=== PATIENT | male | born 1990 | race Caucasian/White ===

== ENCOUNTER 2017-07-07 11:38 | Emergency (ER) | payer OTHER ==
[~2017-07-07] VITALS: Ht 180.3 cm; Wt 59.1 kg
[2017-07-07 12:26] VITALS: BP 117/75; PULSE 97; RESP 20; TEMP 98.7; O2SAT 100
[2017-07-07 15:10] LABS: AUTOMATED NEUTROPHIL # 7.2 TH/MM3 (1.8-7.7); BASOPHIL % 0.4 % (0.0-2.0); EOSINOPHIL # 0.1 TH/MM3 (0-0.4); EOSINOPHIL % 0.7 % (0.0-4.0); HEMATOCRIT 45.1 % (39.0-51.0); HEMOGLOBIN 15.7 GM/DL (13.0-17.0); LYMPHOCYTE # 1.6 TH/MM3 (1.0-4.8); MEAN CELL VOLUME 85.7 FL (80.0-100.0); MEAN CORPUSCULAR HEMOGLOBIN 29.9 PG (27.0-34.0); MEAN CORPUSCULAR HGB CONC 34.8 % (32.0-36.0); MONO % 5.9 % (0.0-8.0); MONOCYTE # 0.6 TH/MM3 (0-0.9); PLATELET COUNT 272 TH/MM3 (150-450); RED BLOOD COUNT 5.26 MIL/MM3 (4.50-5.90); RED CELL DISTRIBUTION WIDTH 12.4 % (11.6-17.2); WHITE BLOOD COUNT 9.4 TH/MM3 (4.0-11.0)
[2017-07-07 15:19] LABS: ALBUMIN 3.4 GM/DL (3.4-5.0); ALT (GPT) 68 U/L (12-78); AST (GOT) 40 U/L (15-37); BICARBONATE 18.6 MEQ/L (21.0-32.0); BLOOD UREA NITROGEN 6 MG/DL (7-18); CALCIUM 9.7 MG/DL (8.5-10.1); CHLORIDE 103 MEQ/L (98-107); CREATININE 0.86 MG/DL (0.60-1.30); GLOMERULAR FILTRATION RATE 106 ML/MIN (>89); GLUCOSE,RANDOM 102 MG/DL (74-106); SODIUM (NA) 133 MEQ/L (136-145)
[2017-07-07 15:21] LABS: ALKALINE PHOSPHATASE 103 U/L (45-117); TOTAL BILIRUBIN ADULT 1.5 MG/DL (0.2-1.0); TOTAL PROTEIN 8.2 GM/DL (6.4-8.2)
[2017-07-07 15:27] LABS: AMORPHOUS SEDIMENT, URINE OCC; BILIRUBIN, URINE NEG (NEG); BLOOD, URINE NEG (NEG); GLUCOSE,URINE NEG (NEG); KETONE, URINE NEG (NEG); MUCUS URINE FEW /lpf (OCC); NITRITE,URINE NEG (NEG); URINE COLOR YELLOW (YELLW/STRAW); URINE LEUKOCYTE ESTERASE NEG (NEG)
[2017-07-07] MEDS ORDERED: POTASSIUM CHLORIDE 25 MEQ EFFERVESCENT TAB PO ONE (15:30)
[2017-07-07] MEDS ORDERED: MORPHINE SULFATE 4 MG/ML INJ IV PUSH ONE (15:30)
[2017-07-07] MEDS ORDERED: PANTOPRAZOLE SODIUM 40 MG VIAL IV PUSH ONE (15:30)
[2017-07-07] MEDS ORDERED: ONDANSETRON HCL 4 MG/2 ML VIAL IV PUSH ONE (15:30)
[2017-07-07] MEDS ORDERED: SODIUM CHLOR 0.9% 1000 ML INJ 1,000 ML IV ONE (15:30)
--- NOTE | 2017-07-07 16:18 | PD ---
HPI Chief Complaint: Abdominal Pain Time Seen by Provider: 15:26 Travel History International Travel<30 days: No Contact w/Intl Traveler<30days: No Traveled to known affect area: No History of Present Illness HPI 26-year-old male came to the emergency room with history of epigastric pain that started this morning. Patient seems quite uncomfortable. Patient says that he has had this kind of pain in the past but has not come to the emergency room. Patient says that he has been nauseous but has not vomited. Yesterday the pain that brings him in and he has been quite uncomfortable. There was blood work ordered from triage. Pain is there constantly and is 10 out of 10. No aggravating or relieving factors identified. Patient did drink 3 beers last night and he usually does not drink. PFSH Past Medical History Narrative Medical List of her past medical, surgical, social and family history is reviewed from the nursing note. Social History Tobacco Use: Yes Allergies-Medications (Allergen,Severity, Reaction): Coded Allergies: No Known Allergies (Unverified , 07/07/17) Comments No known drug allergies. Reported Meds & Prescriptions Reported Meds & Active Scripts Active Zofran Odt (Ondansetron Odt) 4 Mg Tab 4 Mg SL Q6HR PRN Zantac (Ranitidine HCl) 150 Mg Tab 150 Mg PO BID Reported Ambien (Zolpidem Tartrate) 10 Mg Tab 10 Mg PO HS PRN Zoloft (Sertraline HCl) 100 Mg Tab 100 Mg PO DAILY Klonopin (Clonazepam) 2 Mg Tab 2 Mg PO BID Narrative Medication Awaiting for the nurse to do the med reconciliation. Review of Systems Except as stated in HPI: all other systems reviewed are Neg Gastrointestinal: Positive: Nausea, Abdominal Pain Physical Exam Narrative GENERAL: Awake, alert, emaciated, significant distress SKIN: Focused skin assessment warm/dry. HEAD: Atraumatic. Normocephalic. EYES: Pupils equal and round. No scleral icterus. No injection or drainage. ENT: No nasal bleeding or discharge. Mucous membranes pink and moist. NECK: Trachea midline. No JVD. CARDIOVASCULAR: Regular rate and rhythm. No murmur appreciated. RESPIRATORY: No accessory muscle use. Clear to auscultation. Breath sounds equal bilaterally. GASTROINTESTINAL: Abdomen soft, some tenderness over in the epigastric area, nondistended. Hepatic and splenic margins not palpable. MUSCULOSKELETAL: No obvious deformities. No clubbing. No cyanosis. No edema. NEUROLOGICAL: Awake and alert. No obvious cranial nerve deficits. Motor grossly within normal limits. Normal speech. PSYCHIATRIC: Appropriate mood and affect; insight and judgment normal. Data Data Last Documented VS Orders Orders Complete Blood Count With Diff (07/07/17 12:29) Comprehensive Metabolic Panel (07/07/17 12:29) Lipase (07/07/17 12:29) Prothrombin Time / Inr (Pt) (07/07/17 12:29) Act Partial Throm Time (Ptt) (07/07/17 12:29) Urinalysis - C+S If Indicated (07/07/17 12:29) Morphine Inj (Morphine Inj) (07/07/17 15:30) Ondansetron Inj (Zofran Inj) (07/07/17 15:30) Sodium Chlor 0.9% 1000 Ml Inj (Ns 1000 M (07/07/17 15:30) Potassium Chloride Eff (K-Lyte Cl Eff) (07/07/17 15:30) Pantoprazole Inj (Protonix Inj) (07/07/17 15:30) Oral Contrast - Adult (07/07/17 15:41) Oral Contrast - Adult (07/07/17 16:35) Diatrizoate Liq ( Gastroview Liq) (07/07/17 17:06) Ct Abd/Pel W/O Iv Contrast (07/07/17 ) Thyroid Stimulating Hormone (07/07/17 19:54) Psych Screen (07/07/17 19:54) Drug Screen, Random Urine (07/07/17 19:54) Alcohol (Ethanol) (07/07/17 19:54) Diphenhydramine Inj (Benadryl Inj) (07/07/17 21:30) Diet Regular Basic (07/08/17 Breakfast) Lorazepam (Ativan) (07/08/17 07:45) Metoclopramide (Reglan) (07/08/17 07:45) Ed Discharge Order (07/08/17 10:14) Labs Laboratory Tests Test 07/07/17 14:07 07/07/17 14:08 07/07/17 16:20 White Blood Count 9.4 TH/MM3 Red Blood Count 5.26 MIL/MM3 Hemoglobin 15.7 GM/DL Hematocrit 45.1 % Mean Corpuscular Volume 85.7 FL Mean Corpuscular Hemoglobin 29.9 PG Mean Corpuscular Hemoglobin Concent 34.8 % Red Cell Distribution Width 12.4 % Platelet Count 272 TH/MM3 Mean Platelet Volume 8.0 FL Neutrophils (%) (Auto) 76.0 % Lymphocytes (%) (Auto) 17.0 % Monocytes (%) (Auto) 5.9 % Eosinophils (%) (Auto) 0.7 % Basophils (%) (Auto) 0.4 % Neutrophils # (Auto) 7.2 TH/MM3 Lymphocytes # (Auto) 1.6 TH/MM3 Monocytes # (Auto) 0.6 TH/MM3 Eosinophils # (Auto) 0.1 TH/MM3 Basophils # (Auto) 0.0 TH/MM3 CBC Comment DIFF FINAL Differential Comment Blood Urea Nitrogen 6 MG/DL Creatinine 0.86 MG/DL Random Glucose 102 MG/DL Total Protein 8.2 GM/DL Albumin 3.4 GM/DL Calcium Level 9.7 MG/DL Alkaline Phosphatase 103 U/L Aspartate Amino Transf (AST/SGOT) 40 U/L Alanine Aminotransferase (ALT/SGPT) 68 U/L Total Bilirubin 1.5 MG/DL Sodium Level 133 MEQ/L Potassium Level 3.3 MEQ/L Chloride Level 103 MEQ/L Carbon Dioxide Level 18.6 MEQ/L Anion Gap 11 MEQ/L Estimat Glomerular Filtration Rate 106 ML/MIN Lipase 65 U/L Thyroid Stimulating Hormone 3rd Gen 1.120 uIU/ML Urine Opiates Screen NEG Urine Barbiturates Screen NEG Urine Amphetamines Screen POS Urine Benzodiazepines Screen POS Urine Cocaine Screen NEG Urine Cannabinoids Screen NEG Ethyl Alcohol Level LESS THAN 3 MG/DL Urine Color YELLOW Urine Turbidity CLOUDY Urine pH 8.0 Urine Specific [place] 1.019 Urine Protein 30 mg/dL Urine Glucose (UA) NEG mg/dL Urine Ketones NEG mg/dL Urine Occult Blood NEG Urine Nitrite NEG Urine Bilirubin NEG Urine Urobilinogen LESS THAN 2.0 MG/DL Urine Leukocyte Esterase NEG Urine RBC 2 /hpf Urine Amorphous Sediment OCC Urine Mucus FEW /lpf Microscopic Urinalysis Comment CULT NOT INDICATED Prothrombin Time 10.5 SEC Prothromb Time International Ratio 1.0 RATIO Activated Partial Thromboplast Time 28.7 SEC MDM Medical Decision Making Medical Screen Exam Complete: Yes Emergency Medical Condition: Yes Medical Record Reviewed: Yes Differential Diagnosis Acute pancreatitis, acute cholecystitis, small bowel obstruction, abdominal pain NOS Narrative Course 4:17 PM blood test results are back and patient has some hypokalemia and dehydration. I have given him IV fluid bolus and pain medication. He is also getting IV Protonix. I have ordered a CT scan of the abdomen and pelvis. Awaiting for the CT to be done and resulted. 4:55 PM awaiting for the CAT scan to be done and resulted. Case will be signed over to the oncoming ER physician. Procedures EKG Prior to Arrival: No Scripts Ondansetron Odt (Zofran Odt) 4 Mg Tab 4 MG SL Q6HR Y for Nausea/Vomiting, #7 TAB 0 Refills Prov: Jorgito Anne MD 07/07/17 Ranitidine (Zantac) 150 Mg Tab 150 MG PO BID for Reduce Stomach Acid, #20 TAB 0 Refills Prov: Jorgito Anne MD 07/07/17 Emily Mendez MD Jul 07, 2017 16:18
[2017-07-07 17:02] LABS: PROTHROMBIN TIME - PATIENT 10.5 SEC (9.8-11.6)
[2017-07-07] MEDS ORDERED: DIATRIZOATE MEGLUM/DIATRIZOATE SOD 9 ML CUP PO ONE (17:06)
[2017-07-07 18:24] VITALS: BP 147/88; PULSE 76; RESP 18; O2SAT 100
[2017-07-07] MEDS ORDERED: ZOLO100T PO (18:28)
[2017-07-07] MEDS ORDERED: AMBI10TA PO (18:28)
[2017-07-07] MEDS ORDERED: KLON2TAB PO (18:28)
[2017-07-07] MEDS ORDERED: IOHEXOL 350 MG/ML 10 ML VIAL (for RAD DIAG) IVCONTRAST ONE (19:07)
--- NOTE | 2017-07-07 19:28 | RADRPT ---
EXAM DATE/TIME: 07/07/2017 19:02 [place] COMPARISON: No previous studies available for comparison. INDICATIONS : Abdomen pain. ORAL CONTRAST: Prescribed oral contrast ingested. RADIATION DOSE: 6.64 CTDIvol (mGy) MEDICAL HISTORY : IV drug use. SURGICAL HISTORY : None. ENCOUNTER: Initial ACUITY: 1 day PAIN SCALE: 5/10 LOCATION: Bilateral abdomen TECHNIQUE: Volumetric scanning of the abdomen and pelvis was performed. Using automated exposure control and ad justment of the mA and/or kV according to patient size, radiation dose was kept as low as reasonably achievable to obtain optimal diagnostic quality images. DICOM format image data is available electro nically for review and comparison. FINDINGS: Lung bases demonstrate several tiny sub-4 mm nodules at both lung bases, probably postinflammatory. No acute findings in the liver, spleen, adrenals, kidneys or pancreas. No free fluid. No bowel obstru ction. No adenopathy. CONCLUSION: 1. No acute findings within the abdomen and pelvis. Several tiny nodules at the lung bases probably p ostinflammatory. Srinath Bueno MD on July 07, 2017 at 19:23 Board Certified Radiologist. This report was verified electronically.
[2017-07-07] MEDS ORDERED: ZOFR4TAB3 SL (19:47)
[2017-07-07] MEDS ORDERED: ZANT150T2 PO (19:47)
--- NOTE | 2017-07-07 19:47 | PD ---
Physical Exam Date Seen by Provider: Jul 07, 2017 Time Seen by Provider: 19:00 Narrative Patient seen and evaluated initially by Dr. Mendez, please see her notes for further details. Awaiting CAT scan, lab work was fairly unremarkable. Laboratory Tests Test 07/07/17 14:07 07/07/17 14:08 07/07/17 16:20 Neutrophils (%) (Auto) 76.0 % (16.0-70.0) Blood Urea Nitrogen 6 MG/DL (7-18) Aspartate Amino Transf (AST/SGOT) 40 U/L (15-37) Total Bilirubin 1.5 MG/DL (0.2-1.0) Sodium Level 133 MEQ/L (136-145) Potassium Level 3.3 MEQ/L (3.5-5.1) Carbon Dioxide Level 18.6 MEQ/L (21.0-32.0) Lipase 65 U/L (73-393) Urine Turbidity CLOUDY (CLEAR) Urine Protein 30 mg/dL (NEG-TRACE) Urine Mucus FEW /lpf (OCC) Lab work and CAT scan was fairly unremarkable. At this point, my plan would be to release patient would follow-up to primary care physician as per discussion with Dr. Mendez. The plan was discussed with the patient and he states understanding. Data Data Last Documented VS Vital Signs Date Time Temp Pulse Resp B/P (MAP) Pulse Ox O2 Delivery O2 Flow Rate FiO2 07/07/17 18:24 76 18 147/88 (107) 100 Room Air 07/07/17 12:26 98.7 Orders Orders Complete Blood Count With Diff (07/07/17 12:29) Comprehensive Metabolic Panel (07/07/17 12:29) Lipase (07/07/17 12:29) Prothrombin Time / Inr (Pt) (07/07/17 12:29) Act Partial Throm Time (Ptt) (07/07/17 12:29) Urinalysis - C+S If Indicated (07/07/17 12:29) Morphine Inj (Morphine Inj) (07/07/17 15:30) Ondansetron Inj (Zofran Inj) (07/07/17 15:30) Sodium Chlor 0.9% 1000 Ml Inj (Ns 1000 M (07/07/17 15:30) Potassium Chloride Eff (K-Lyte Cl Eff) (07/07/17 15:30) Pantoprazole Inj (Protonix Inj) (07/07/17 15:30) Oral Contrast - Adult (07/07/17 15:41) Oral Contrast - Adult (07/07/17 16:35) Diatrizoate Liq ( [place] Liq) (07/07/17 17:06) Ct Abd/Pel W/O Iv Contrast (07/07/17 ) Ed Discharge Order (07/07/17 19:43) Labs Laboratory Tests Test 07/07/17 14:07 07/07/17 14:08 07/07/17 16:20 White Blood Count 9.4 TH/MM3 Red Blood Count 5.26 MIL/MM3 Hemoglobin 15.7 GM/DL Hematocrit 45.1 % Mean Corpuscular Volume 85.7 FL Mean Corpuscular Hemoglobin 29.9 PG Mean Corpuscular Hemoglobin Concent 34.8 % Red Cell Distribution Width 12.4 % Platelet Count 272 TH/MM3 Mean Platelet Volume 8.0 FL Neutrophils (%) (Auto) 76.0 % Lymphocytes (%) (Auto) 17.0 % Monocytes (%) (Auto) 5.9 % Eosinophils (%) (Auto) 0.7 % Basophils (%) (Auto) 0.4 % Neutrophils # (Auto) 7.2 TH/MM3 Lymphocytes # (Auto) 1.6 TH/MM3 Monocytes # (Auto) 0.6 TH/MM3 Eosinophils # (Auto) 0.1 TH/MM3 Basophils # (Auto) 0.0 TH/MM3 CBC Comment DIFF FINAL Differential Comment Blood Urea Nitrogen 6 MG/DL Creatinine 0.86 MG/DL Random Glucose 102 MG/DL Total Protein 8.2 GM/DL Albumin 3.4 GM/DL Calcium Level 9.7 MG/DL Alkaline Phosphatase 103 U/L Aspartate Amino Transf (AST/SGOT) 40 U/L Alanine Aminotransferase (ALT/SGPT) 68 U/L Total Bilirubin 1.5 MG/DL Sodium Level 133 MEQ/L Potassium Level 3.3 MEQ/L Chloride Level 103 MEQ/L Carbon Dioxide Level 18.6 MEQ/L Anion Gap 11 MEQ/L Estimat Glomerular Filtration Rate 106 ML/MIN Lipase 65 U/L Urine Color YELLOW Urine Turbidity CLOUDY Urine pH 8.0 Urine Specific [place] 1.019 Urine Protein 30 mg/dL Urine Glucose (UA) NEG mg/dL Urine Ketones NEG mg/dL Urine Occult Blood NEG Urine Nitrite NEG Urine Bilirubin NEG Urine Urobilinogen LESS THAN 2.0 MG/DL Urine Leukocyte Esterase NEG Urine RBC 2 /hpf Urine Amorphous Sediment OCC Urine Mucus FEW /lpf Microscopic Urinalysis Comment CULT NOT INDICATED Prothrombin Time 10.5 SEC Prothromb Time International Ratio 1.0 RATIO Activated Partial Thromboplast Time 28.7 SEC [facility] Medical Record Reviewed: Yes Supervised Visit with MELANIE: No Diagnosis Primary Impression: Abdominal pain Med/Other Pt SpecificInfo: Prescription(s) given Scripts Ondansetron Odt (Zofran Odt) 4 Mg Tab 4 MG SL Q6HR Y for Nausea/Vomiting, #7 TAB 0 Refills Prov: Jorgito Anne MD 07/07/17 Ranitidine (Zantac) 150 Mg Tab 150 MG PO BID for Reduce Stomach Acid, #20 TAB 0 Refills Prov: Jorgito Anne MD 07/07/17 Disposition: 01 DISCHARGE HOME Condition: Stable Jorgito Anne MD Jul 07, 2017 19:47
[2017-07-07 21:25] VITALS: BP 114/57; PULSE 97; RESP 18; O2SAT 100
[2017-07-07] MEDS ORDERED: diphenhydrAMINE HCL 50 MG/ML VIAL IV PUSH ONE (21:30)
[2017-07-08 07:15] VITALS: BP 117/61; PULSE 85; RESP 18; O2SAT 98
[2017-07-08] MEDS ORDERED: METOCLOPRAMIDE HCL 10 MG TAB PO ONE (07:45)
[2017-07-08] MEDS ORDERED: LORazepam 1 MG TAB PO ONE (07:45)
--- NOTE | 2017-07-08 10:13 | PD ---
Physical Exam Date Seen by Provider: Jul 08, 2017 Time Seen by Provider: 10:11 Narrative 26-year-old male previously [place] acted last evening after being medically cleared, with complaints of suicidal ideation and history of substance abuse, has been seen and evaluated by Dr. Hernandez, the psychiatrist here today, and determined to be psychiatrically stable for discharge. Patient remains medically stable for discharge and is given prescriptions for Zofran and ranitidine. Psychiatric follow-up will be based on the psychiatric note. Data Data Last Documented VS Vital Signs Date Time Temp Pulse Resp B/P (MAP) Pulse Ox O2 Delivery O2 Flow Rate FiO2 07/08/17 07:15 85 18 117/61 (79) 98 Room Air 07/07/17 12:26 98.7 Orders Orders Complete Blood Count With Diff (07/07/17 12:29) Comprehensive Metabolic Panel (07/07/17 12:29) Lipase (07/07/17 12:29) Prothrombin Time / Inr (Pt) (07/07/17 12:29) Act Partial Throm Time (Ptt) (07/07/17 12:29) Urinalysis - C+S If Indicated (07/07/17 12:29) Morphine Inj (Morphine Inj) (07/07/17 15:30) Ondansetron Inj (Zofran Inj) (07/07/17 15:30) Sodium Chlor 0.9% 1000 Ml Inj (Ns 1000 M (07/07/17 15:30) Potassium Chloride Eff (K-Lyte Cl Eff) (07/07/17 15:30) Pantoprazole Inj (Protonix Inj) (07/07/17 15:30) Oral Contrast - Adult (07/07/17 15:41) Oral Contrast - Adult (07/07/17 16:35) Diatrizoate Liq ( Gastroview Liq) (07/07/17 17:06) Ct Abd/Pel W/O Iv Contrast (07/07/17 ) Thyroid Stimulating Hormone (07/07/17 19:54) Psych Screen (07/07/17 19:54) Drug Screen, Random Urine (07/07/17 19:54) Alcohol (Ethanol) (07/07/17 19:54) Diphenhydramine Inj (Benadryl Inj) (07/07/17 21:30) Diet Regular Basic (07/08/17 Breakfast) Lorazepam (Ativan) (07/08/17 07:45) Metoclopramide (Reglan) (07/08/17 07:45) Labs Laboratory Tests Test 07/07/17 14:07 07/07/17 14:08 07/07/17 16:20 White Blood Count 9.4 TH/MM3 Red Blood Count 5.26 MIL/MM3 Hemoglobin 15.7 GM/DL Hematocrit 45.1 % Mean Corpuscular Volume 85.7 FL Mean Corpuscular Hemoglobin 29.9 PG Mean Corpuscular Hemoglobin Concent 34.8 % Red Cell Distribution Width 12.4 % Platelet Count 272 TH/MM3 Mean Platelet Volume 8.0 FL Neutrophils (%) (Auto) 76.0 % Lymphocytes (%) (Auto) 17.0 % Monocytes (%) (Auto) 5.9 % Eosinophils (%) (Auto) 0.7 % Basophils (%) (Auto) 0.4 % Neutrophils # (Auto) 7.2 TH/MM3 Lymphocytes # (Auto) 1.6 TH/MM3 Monocytes # (Auto) 0.6 TH/MM3 Eosinophils # (Auto) 0.1 TH/MM3 Basophils # (Auto) 0.0 TH/MM3 CBC Comment DIFF FINAL Differential Comment Blood Urea Nitrogen 6 MG/DL Creatinine 0.86 MG/DL Random Glucose 102 MG/DL Total Protein 8.2 GM/DL Albumin 3.4 GM/DL Calcium Level 9.7 MG/DL Alkaline Phosphatase 103 U/L Aspartate Amino Transf (AST/SGOT) 40 U/L Alanine Aminotransferase (ALT/SGPT) 68 U/L Total Bilirubin 1.5 MG/DL Sodium Level 133 MEQ/L Potassium Level 3.3 MEQ/L Chloride Level 103 MEQ/L Carbon Dioxide Level 18.6 MEQ/L Anion Gap 11 MEQ/L Estimat Glomerular Filtration Rate 106 ML/MIN Lipase 65 U/L Thyroid Stimulating Hormone 3rd Gen 1.120 uIU/ML Urine Opiates Screen NEG Urine Barbiturates Screen NEG Urine Amphetamines Screen POS Urine Benzodiazepines Screen POS Urine Cocaine Screen NEG Urine Cannabinoids Screen NEG Ethyl Alcohol Level LESS THAN 3 MG/DL Urine Color YELLOW Urine Turbidity CLOUDY Urine pH 8.0 Urine Specific [place] 1.019 Urine Protein 30 mg/dL Urine Glucose (UA) NEG mg/dL Urine Ketones NEG mg/dL Urine Occult Blood NEG Urine Nitrite NEG Urine Bilirubin NEG Urine Urobilinogen LESS THAN 2.0 MG/DL Urine Leukocyte Esterase NEG Urine RBC 2 /hpf Urine Amorphous Sediment OCC Urine Mucus FEW /lpf Microscopic Urinalysis Comment CULT NOT INDICATED Prothrombin Time 10.5 SEC Prothromb Time International Ratio 1.0 RATIO Activated Partial Thromboplast Time 28.7 SEC [facility] Medical Record Reviewed: Yes Supervised Visit with MELANIE: Yes Narrative Course 26-year-old male previously [place] acted last evening after being medically cleared, with complaints of suicidal ideation and history of substance abuse, has been seen and evaluated by Dr. Hernandez, the psychiatrist here today, and determined to be psychiatrically stable for discharge. Patient remains medically stable for discharge and is given prescriptions for Zofran and ranitidine. Psychiatric follow-up will be based on the psychiatric note. Diagnosis Primary Impression: Abdominal pain Qualified Codes: R10.13 - Epigastric pain Additional Impression: Medical clearance for psychiatric admission Patient Instructions: General Instructions, Abdominal Pain (ED) Departure Forms: Tests/Procedures Med/Other Pt SpecificInfo: Prescription(s) given Scripts Ondansetron Odt (Zofran Odt) 4 Mg Tab 4 MG SL Q6HR Y for Nausea/Vomiting, #7 TAB 0 Refills Prov: Jorgito Anne MD 07/07/17 Ranitidine (Zantac) 150 Mg Tab 150 MG PO BID for Reduce Stomach Acid, #20 TAB 0 Refills Prov: Jorgito Anne MD 07/07/17 Disposition: 01 DISCHARGE HOME Condition: Stable Remington Schafer Jul 08, 2017 10:13
--- NOTE | 2017-07-08 13:30 | PD.PSY.CON ---
Provisional Diagnosis Admission Date [place] I. Polysubstance dependence including amphetamines, cocaine, alcohol, history of depression [place] II. Deferred [place] III. No significant medical history History of Present Illness Service Psychiatry Consult Requested By ER Reason for Consult SI Primary Care Physician Unknown HPI The patient is a 26-year-old man, domiciled in [place] with his mother, single, unemployed, with psychiatric history of self-reported depression , polysubstance dependence including amphetamines, cocaine, alcohol, no previous psychiatric hospitalizations, one previous suicide attempt, extensive history of self cutting behavior, no significant medical history, came to the emergency room with history of epigastric pain that started yesterday morning. Patient seemed to be quite uncomfortable. Patient says that he has had this kind of pain in the past but has not come to the emergency room. Patient says that he has been nauseous but has not vomited. Yesterday the pain that brings him in and he has been quite uncomfortable. There was blood work ordered from triage. Pain is there constantly and is 10 out of 10. No aggravating or relieving factors identified. Patient did drink 3 beers last night and he usually does not drink. Once the patient was medically cleared he reported suicidal ideation. He was Collins acted. On psychiatric evaluation today patient is calm, cooperative, requesting to be detoxed. The patient denies suicidal and homicidal ideation, he denies visual and auditory hallucinations. Patient reports daily use of IV amphetamines, opiates, and alcohol. Review of Systems Constitutional: DENIES: Diaphoretic episodes, Fatigue, Fever, Weight gain, Weight loss, Chills, Dizziness, Change in appetite, Night Sweats Endocrine: DENIES: Heat/cold intolerance, Polydipsia, Polyuria, Polyphagia Ears, nose, mouth, throat: DENIES: Tinnitus, Hearing loss, Vertigo, Nasal discharge, Oral lesions, Throat pain, Hoarseness, Ear Pain, Running Nose, Epistaxis, Sinus Pain, Toothache, Odynophagia Respiratory: DENIES: Apneas, Cough, Snoring, Wheezing, Hemoptysis, Sputum production, Shortness of breath Cardiovascular: DENIES: Chest pain, Palpitations, Syncope, Dyspnea on Exertion , PND, Lower Extremity Edema, Orthopnea, Claudication Gastrointestinal: DENIES: Abdominal pain, Black stools, Bloody stools, Constipation, Diarrhea, Nausea, Vomiting, Difficulty Swallowing, Anorexia Genitourinary: DENIES: Sexual dysfunction, Urinary frequency, Urinary incontinence, Urgency, Hematuria, Dysuria, Nocturia, Penile Discharge, Testicular Pain, Testicular Swelling Musculoskeletal: DENIES: Joint pain, Muscle aches, Stiffness, Joint Swelling, Back pain, Neck pain Integumentary: DENIES: Abnormal pigmentation, Nail changes, Pruritus, Rash Hematologic/lymphatic: DENIES: Bruising, Lymphadenopathy Immunologic/allergic: DENIES: Eczema, Urticaria Neurologic: DENIES: Abnormal gait, Headache, Localized weakness, Paresthesias, Seizures, Speech Problems, Tremor, Poor Balance Psychiatric: DENIES: Anxiety, Confusion, Mood changes, Depression, Hallucinations, Agitation, Suicidal Ideation, Homicidal Ideation, Delusions Past Family Social History Coded Allergies: No Known Allergies (Unverified , 07/07/17) Active Scripts Ondansetron Odt (Zofran Odt) 4 Mg Tab, 4 MG SL Q6HR Y for Nausea/Vomiting, #7 TAB 0 Refills Prov:Jorgito Anne MD 07/07/17 Ranitidine (Zantac) 150 Mg Tab, 150 MG PO BID for Reduce Stomach Acid, #20 TAB 0 Refills Prov:Jorgito Anne MD 07/07/17 Reported Medications Zolpidem (Ambien) 10 Mg Tab, 10 MG PO HS Y for INSOMNIA, TAB 0 Refills 07/07/17 Sertraline (Zoloft) 100 Mg Tab, 100 MG PO DAILY, #30 TAB 0 Refills 07/07/17 Clonazepam (Klonopin) 2 Mg Tab, 2 MG PO BID, #60 TAB 0 Refills 07/07/17 Family Psych History No family psychiatric Social History The patient was born and raised in [place], he lives in [place], unemployed, single, his highest level of education is 11th Patient's Strengths (min. 2) Verbal communication Physical Exam Vital Signs Vital Signs Date Time Temp Pulse Resp B/P (MAP) Pulse Ox O2 Delivery O2 Flow Rate FiO2 07/08/17 10:52 07/08/17 07:15 85 18 98 Room Air 07/07/17 12:26 98.7 Lab Results Test 07/07/17 14:07 07/07/17 14:08 07/07/17 16:20 White Blood Count 9.4 TH/MM3 Red Blood Count 5.26 MIL/MM3 Hemoglobin 15.7 GM/DL Hematocrit 45.1 % Mean Corpuscular Volume 85.7 FL Mean Corpuscular Hemoglobin 29.9 PG Mean Corpuscular Hemoglobin Concent 34.8 % Red Cell Distribution Width 12.4 % Platelet Count 272 TH/MM3 Mean Platelet Volume 8.0 FL Neutrophils (%) (Auto) 76.0 % Lymphocytes (%) (Auto) 17.0 % Monocytes (%) (Auto) 5.9 % Eosinophils (%) (Auto) 0.7 % Basophils (%) (Auto) 0.4 % Neutrophils # (Auto) 7.2 TH/MM3 Lymphocytes # (Auto) 1.6 TH/MM3 Monocytes # (Auto) 0.6 TH/MM3 Eosinophils # (Auto) 0.1 TH/MM3 Basophils # (Auto) 0.0 TH/MM3 CBC Comment DIFF FINAL Differential Comment Blood Urea Nitrogen 6 MG/DL Creatinine 0.86 MG/DL Random Glucose 102 MG/DL Total Protein 8.2 GM/DL Albumin 3.4 GM/DL Calcium Level 9.7 MG/DL Alkaline Phosphatase 103 U/L Aspartate Amino Transf (AST/SGOT) 40 U/L Alanine Aminotransferase (ALT/SGPT) 68 U/L Total Bilirubin 1.5 MG/DL Sodium Level 133 MEQ/L Potassium Level 3.3 MEQ/L Chloride Level 103 MEQ/L Carbon Dioxide Level 18.6 MEQ/L Anion Gap 11 MEQ/L Estimat Glomerular Filtration Rate 106 ML/MIN Lipase 65 U/L Thyroid Stimulating Hormone 3rd Gen 1.120 uIU/ML Urine Opiates Screen NEG Urine Barbiturates Screen NEG Urine Amphetamines Screen POS Urine Benzodiazepines Screen POS Urine Cocaine Screen NEG Urine Cannabinoids Screen NEG Ethyl Alcohol Level LESS THAN 3 MG/DL Urine Color YELLOW Urine Turbidity CLOUDY Urine pH 8.0 Urine Specific [place] 1.019 Urine Protein 30 mg/dL Urine Glucose (UA) NEG mg/dL Urine Ketones NEG mg/dL Urine Occult Blood NEG Urine Nitrite NEG Urine Bilirubin NEG Urine Urobilinogen LESS THAN 2.0 MG/DL Urine Leukocyte Esterase NEG Urine RBC 2 /hpf Urine Amorphous Sediment OCC Urine Mucus FEW /lpf Microscopic Urinalysis Comment CULT NOT INDICATED Prothrombin Time 10.5 SEC Prothromb Time International Ratio 1.0 RATIO Activated Partial Thromboplast Time 28.7 SEC Mental Status Examination Appearance: Appropriate Consciousness: Alert Orientation: x4 Motor Activity: Normal gait Speech: Unremarkable Language: Adequate Fund of Knowledge: Adequate Attention and Concentration: Adequate Memory: Unremarkable Mood: Appropriate Affect: Appropriate Thought Process & Associations: Intact Thought Content: Appropriate Hallucination Type: None Delusion Type: None Suicidal Ideation: No Suicidal Plan: No Suicidal Intention: No Homicidal Ideation: No Homicidal Plan: No Homicidal Intention: No Insight: Adequate Judgment: Adequate Assessment & Plan Problem List: (1) Polysubstance dependence ICD Codes: F19.20 - Other psychoactive substance dependence, uncomplicated Assessment & Plan: On psychiatric evaluation today the patient does not present any evidence of depression, anxiety, jessica or psychosis. He denies suicidal and homicidal ideation, he denies visual and auditory hallucinations. Yesterday suicidal state was most probably the result of acute substance intoxication, but may be conscious simulation with secondary gain of staying in the hospital and getting more narcotics, today he seems to be compromised to be transferred to detox. He does not meet criteria for involuntary psychiatric admission. Collins act will be lifted Assessment & Plan Estimated LOS: Alirio Dave MD Jul 08, 2017 13:30
== END 2017-07-08 11:33 | disposition home or self-care (01) ==
LOC: NEPD 11:38
DX: R10.13 Epigastric pain (principal); R45.851 Suicidal ideations; R11.0 Nausea; Z72.0 Tobacco use; Z79.899 Other long term (current) drug therapy
CPT/HCPCS: 74176; 80053; 80307; 81001; 83690; 84443; 85025; 85610; 85730; 96361; 96374; 96375; 99284; C9113; J1200; J2270; J2405; J7030; Q9963; Q9967